=== PATIENT | male | born 1995 | race Caucasian/White ===

== ENCOUNTER 2016-11-13 03:36 | Emergency (ER) | payer BC ==
[~2016-11-13] VITALS: Ht 175.3 cm; Wt 63.5 kg
[~2016-11-13 03:36] MED LIST: ATOM60CA PO; BUPR100T4 PO; DULO20CA PO; GABA-536 PO; PROP40TA7 PO
--- NOTE | 2016-11-13 04:15 | NUR ---
Patient discharged to home in stable conditon. Written and verbal after care instructions given. Patient verbalizes understanding of instructions.
[2016-11-13 04:22] VITALS: BP 122/82
== END 2016-11-13 04:15 | disposition home or self-care (01) ==
LOC: ER 03:37
DX: Z00.00 Encounter for general adult medical examination without abnormal findings (principal); R20.0 Anesthesia of skin; F32.9 Major depressive disorder, single episode, unspecified; F41.9 Anxiety disorder, unspecified; Z88.1 Allergy status to other antibiotic agents
CPT/HCPCS: A4663

== ENCOUNTER 2017-01-14 01:37 | Emergency (ER) | payer BC ==
[~2017-01-14] VITALS: Ht 175.3 cm; Wt 61.2 kg
--- NOTE | 2017-01-14 02:26 | NUR ---
Patient discharged to home in stable conditon. Written and verbal after care instructions given. Patient verbalizes understanding of instructions. Ambulated from ER with stable gait. All belongings with patient. Patient will be driven home by family member in private vehicle.
[2017-01-14 05:25] VITALS: BP 132/79
== END 2017-01-14 02:27 | disposition home or self-care (01) ==
LOC: ER 01:39
DX: N20.0 Calculus of kidney (principal); F41.9 Anxiety disorder, unspecified; F32.9 Major depressive disorder, single episode, unspecified; Z88.1 Allergy status to other antibiotic agents
CPT/HCPCS: A4663

== ENCOUNTER 2017-02-06 02:17 | Emergency (ER) | payer SELFPAY ==
[~2017-02-06] VITALS: Ht 175.3 cm; Wt 63.5 kg
[2017-02-06] MEDS: HYDROCODONE/APAP 5-325MG TABLET PO ONE (03:30)
[2017-02-06] MEDS: NITROGLYCERIN OINT 1 GM PACKET TP ONE (03:31)
[2017-02-06] MEDS: ASPIRIN 81 MG TAB.CHEW PO ONE (03:33)
--- NOTE | 2017-02-06 03:37 | NUR ---
IV PLACED, MEDS ADMINISTERED, PT POSITIONED FOR COMFORT. EKG DONE, MONITOR SHOWS SINUS TACH AT 108, PO2=99% ON [place]. LABS DRAWN/SENT. PT AWAITING PORTABLE CXR.
[2017-02-06 03:38] LABS: CREATININE 1.2 mg/dL (0.6-1.3); POTASSIUM 3.9 mmol/L (3.5-5.1)
[2017-02-06] MEDS ORDERED: NITROGLYCERIN OINT 1 GM PACKET TP ONE (03:38)
[2017-02-06] MEDS ORDERED: ASPIRIN 81 MG TAB.CHEW ONE ×2 (03:38→03:43)
[2017-02-06 03:39] LABS: BASOPHILS % (AUTO) 0.6 % (0.0-2.0); EOSINOPHILS # (AUTO) 0.2 K/uL (0.0-0.7); EOSINOPHILS % (AUTO) 2.5 % (0.0-7.0); HEMATOCRIT 47.9 % (40-50); HEMOGLOBIN 16.4 G/DL (14.0-18.0); LYMPHOCYTES # (AUTO) 2.1 K/UL (0.8-4.8); LYMPHOCYTES % (AUTO) 35.5 % (20.5-51.5); MEAN CORPUSCULAR HEMOGLOBIN 30.6 UUG (27.0-31.0); MEAN CORPUSCULAR HGB CONC 34 g/dL (32.0-37.0); MEAN CORPUSCULAR VOLUME 89.7 FL (82.0-92.0); MONOCYTES # (AUTO) 0.4 K/UL (0.1-1.30); MONOCYTES % (AUTO) 6.5 % (0.0-11.0); NEUTROPHILS # (AUTO) 3.3 K/UL (1.8-8.9); NEUTROPHILS % (AUTO) 54.9 % (38.5-71.5); PLATELET COUNT (AUTO) 231 K/UL (150-450); RED BLOOD CELL COUNT(AUTO) 5.34 MIL/UL (4.7-6.1)
[2017-02-06] MEDS ORDERED: HYDROCODONE/APAP 5-325MG TABLET ONE (03:39)
[2017-02-06 03:54] LABS: BILIRUBIN,DIRECT 0.1 mg/dL (0.0-0.2); BILIRUBIN,TOTAL 0.5 mg/dL (0.2-1.0); TOTAL PROTEIN, SERUM 7.6 g/dL (6.4-8.2)
[2017-02-06] MEDS: LORAZEPAM 2 MG/1 ML VIAL IV ONE (04:06)
[2017-02-06] MEDS ORDERED: LORAZEPAM 2 MG/1 ML VIAL ONE (04:13)
[2017-02-06] MEDS: IV NORMAL SALINE 1000 ML BAG IV ONE ×2 (04:30→05:16)
[2017-02-06 05:14] LABS: *AMPHETAMINE, URINE NEGATIVE (NEGATIVE); *BARBITURATE, URINE NEGATIVE (NEGATIVE); *CANNABINOID, URINE POSITIVE (NEGATIVE); *COCCAINE, URINE NEGATIVE (NEGATIVE); *OPIATE, URINE NEGATIVE (NEGATIVE); *PHENCYCLIDINE SCREEN,URINE NEGATIVE (NEGATIVE)
--- NOTE | 2017-02-06 07:08 | NUR ---
PT IS IN ROOM #2A. DR HEDRICK EVALUATED THE PT. PT IS RESTING IN BED COMFORTABLY. NO S/S OF ACUTE DISTRESS.
--- NOTE | 2017-02-06 07:33 | NUR ---
PT WAS D/C'd TO HOME. D/C INSTRUCTIONS GIVEN TO THE PT. PT DENIES PAIN. NO SOB. NO N/V. GAIT IS STABLE.
[2017-02-06 07:35] VITALS: BP 122/67
== END 2017-02-06 07:35 | disposition home or self-care (01) ==
LOC: ER 02:18
DX: R07.9 Chest pain, unspecified (principal); F32.9 Major depressive disorder, single episode, unspecified; F41.9 Anxiety disorder, unspecified; F12.929 Cannabis use, unspecified with intoxication, unspecified; Z87.442 Personal history of urinary calculi; Z88.1 Allergy status to other antibiotic agents
CPT/HCPCS: 36415; 70030-TC; 71010; 80307; 85025; 85730; 93005; A4663; J2060; J7030

== ENCOUNTER 2017-10-25 20:39 | Emergency (ER) | payer BC ==
[~2017-10-25] VITALS: Ht 175.3 cm; Wt 63.5 kg
[2017-10-25] MEDS ORDERED: ARIP20TA4 PO (21:07)
[2017-10-25] MEDS ORDERED: GUAN1TAB2 PO (21:07)
[2017-10-25] MEDS ORDERED: GUAN2TAB PO (21:07)
[2017-10-25] MEDS ORDERED: ARMO50TA2 PO (21:08)
[2017-10-25] MEDS ORDERED: IV NORMAL SALINE 1000 ML BAG IV ONE (21:15)
[2017-10-25 21:30] LABS: BASOPHILS % (AUTO) 0.2 % (0.0-2.0); EOSINOPHILS # (AUTO) 0.1 K/uL (0.0-0.7); EOSINOPHILS % (AUTO) 1.2 % (0.0-7.0); HEMOGLOBIN 17.8 g/dL (12.5-16.3); LYMPHOCYTES # (AUTO) 1.6 K/uL (20.0-40.0); LYMPHOCYTES % (AUTO) 25.8 % (20.5-51.5); MEAN CORPUSCULAR HEMOGLOBIN 31.6 uug (23.8-33.4); MEAN CORPUSCULAR HGB CONC 35 g/dL (32.5-36.3); MEAN CORPUSCULAR VOLUME 90.5 fL (73.0-96.2); MONOCYTES # (AUTO) 0.6 K/uL (2.0-10.0); MONOCYTES % (AUTO) 9.3 % (0.0-11.0); NEUTROPHILS % (AUTO) 63.5 % (38.5-71.5); PLATELET COUNT (AUTO) 269 K/uL (152-348); RED BLOOD CELL COUNT(AUTO) 5.64 MIL/uL (4.06-5.63); WHITE BLOOD COUNT (AUTO) 6.3 K/uL (3.6-10.2)
--- NOTE | 2017-10-25 21:34 | NUR ---
Patient currently refuses CT scan. Patient is requesting ultrasound. ER MD aware
[2017-10-25 21:40] LABS: BILIRUBIN,DIRECT 0.1 mg/dL (0.0-0.2); BILIRUBIN,TOTAL 0.6 mg/dL (0.2-1.0); POTASSIUM 3.4 mmol/L (3.5-5.1); TOTAL PROTEIN, SERUM 8.5 g/dL (6.4-8.2)
--- NOTE | 2017-10-25 22:19 | NUR ---
US ongoing at bedside. Well tolerated by patient. No acute distress
[2017-10-25 22:41] LABS: *BILIRUBIN,URIN NEGATIVE (NEGATIVE); *BLOOD, URINE Trace-intact (NEGATIVE); *CLARITY,URINE CLEAR (CLEAR); *COLOR,URINE YELLOW (YELLOW); *KETONES,URINE NEGATIVE (NEGATIVE); *PROTEIN,URINE NEGATIVE (NEGATIVE); *UROBILINOGEN,URINE 0.2 E.U./dl (NORMAL); LEUKOCYTE ESTERASE ,URINE NEGATIVE (NEGATIVE); NITRITE, URINE NEGATIVE (NEGATIVE); UGLUCOSE NEGATIVE (NEGATIVE)
--- NOTE | 2017-10-25 22:42 | NUR ---
Patient discharged to home in stable conditon. Written and verbal after care instructions given. Patient verbalizes understanding of instructions.
--- NOTE | 2017-10-25 22:42 | NUR ---
Patient discharged to home in stable conditon. Written and verbal after care instructions given. Patient verbalizes understanding of instructions. Ambulated from ER w/ stable gait. All belonging w/ patient at time of discharge. Peripheral IV removed prior to discharge. VSS.
[2017-10-25 22:45] VITALS: BP 138/81
[2017-10-25 22:51] LABS: BACTERIA,URINE NONE SEEN /HPF (NONE SEEN); RBC,URINE 0-3 /HPF (0-3); SQUAMOUS EPITHELIAL CELL,UR FEW /HPF (NONE SEEN); WBC,URINE 0-3 /HPF (0-3)
== END 2017-10-25 22:45 | disposition home or self-care (01) ==
LOC: ER 20:41
DX: R10.12 Left upper quadrant pain (principal); Z88.1 Allergy status to other antibiotic agents; Z79.899 Other long term (current) drug therapy
CPT/HCPCS: 36415; 76700; 80048; 80076; 81001; 83690; 85025; 96360; 99285; A4663; J7030

== ENCOUNTER 2018-10-02 20:25 | Emergency (ER) | payer BC ==
[~2018-10-02] VITALS: Ht 175.3 cm; Wt 68.0 kg
[~2018-10-02 20:25] MED LIST changes: +ARIP20TA4 PO; +ARMO50TA2 PO; -ATOM60CA PO; -BUPR100T4 PO; -DULO20CA PO; -GABA-536 PO; +GUAN1TAB2 PO; +GUAN2TAB PO; -PROP40TA7 PO
[2018-10-02] MEDS ORDERED: FETZIMA 40 MG PO (20:36)
[2018-10-02] MEDS ORDERED: MIRT15TA PO (20:36)
--- NOTE | 2018-10-02 21:11 | NUR ---
MSE COMPLETED, PT D/C'D HOME, ACI GIVEN. PT AMBULATED W/O DIFF/TOOK ALL BELONGINGS
[2018-10-02 21:12] VITALS: BP 148/82
== END 2018-10-02 21:13 | disposition home or self-care (01) ==
LOC: ER 20:29
DX: R07.89 Other chest pain (principal); F41.9 Anxiety disorder, unspecified; F32.9 Major depressive disorder, single episode, unspecified; F90.9 Attention-deficit hyperactivity disorder, unspecified type; Z79.899 Other long term (current) drug therapy; Z88.1 Allergy status to other antibiotic agents
CPT/HCPCS: 93005; A4663

== ENCOUNTER 2019-06-19 23:49 | Emergency (ER) | payer BC ==
[~2019-06-19] VITALS: Ht 180.3 cm; Wt 74.8 kg
[~2019-06-19 23:49] MED LIST changes: -ARMO50TA2 PO; +FETZIMA 40 MG PO; -GUAN1TAB2 PO; -GUAN2TAB PO; +MIRT15TA PO
[2019-06-20] MEDS ORDERED: KETOROLAC TROMETHAMINE 15 MG INJ IVP ONE (01:30)
[2019-06-20] MEDS ORDERED: KETOROLAC TROMETHAMINE 15 MG INJ ONE (01:33)
--- NOTE | 2019-06-20 03:10 | NUR ---
PATIENT ALERT RESPONSIVE LEFT ER AMBULATORY WITH F/U INSTRUCTION. PAIN RESOLVED.
[2019-06-20 03:13] VITALS: BP 101/68
[2019-06-22 08:11] LABS: *GC NAA Negative (Negative); *TRIC.VAG. NAA Negative (Negative)
== END 2019-06-20 03:10 | disposition home or self-care (01) ==
LOC: ER 23:49
DX: N50.811 Right testicular pain (principal); F32.9 Major depressive disorder, single episode, unspecified; F41.9 Anxiety disorder, unspecified; F17.200 Nicotine dependence, unspecified, uncomplicated; F12.10 Cannabis abuse, uncomplicated; Z79.899 Other long term (current) drug therapy; Z88.1 Allergy status to other antibiotic agents; Z91.018 Allergy to other foods
CPT/HCPCS: 76870; 87491; 96374; 99284; J1885; A4663